=== PATIENT | male | born 1945 | race Caucasian/White ===

== ENCOUNTER 2020-01-04 17:15 | Inpatient (IN) | payer MEDICARE, OTHER ==
[~2020-01-04] VITALS: Ht 188 cm; Wt 78.1 kg
[2020-01-04] MEDS ORDERED: ZOLPIDEM TARTRATE 5MG TABLET PO PRN (18:30)
[2020-01-04] MEDS ORDERED: MAGNESIUM HYDROXIDE 400MG/5ML 30ML UDC PO PRN (18:30)
[2020-01-04] MEDS ORDERED: ONDANSETRON HCL 4MG/2ML INJ IV PRN (18:30)
[2020-01-04] MEDS ORDERED: ENAL20TA67 PO (18:53)
[2020-01-04 19:45] VITALS: BP 133/75
[2020-01-04 20:00] VITALS: BP 133/75
[2020-01-04] MEDS: AMLODIPINE 5MG TABLET PO SCH (20:11)
[2020-01-05] MEDS ORDERED: CEPHALEXIN 250MG CAPSULE PO SCH
[2020-01-05] MEDS: PANTOPRAZOLE 40MG DR TABLET PO SCH (06:12)
[2020-01-05 06:58] LABS: BASOPHILS % 0.7 % (0.0-2.0); EOSINOPHILS % 1.2 % (0.0-5.0); HEMATOCRIT. 29.4 % (42.0-52.0); LYMPHOCYTES % 20.8 % (20.0-50.0); MEAN CORPUSCULAR HEMOGLOBIN 28.8 pg (28.0-32.0); MEAN CORPUSCULAR VOLUME 84.7 fL (80.0-94.0); MONOCYTES % 9.5 % (2.0-8.0); NEUTROPHILS % 67.8 % (40.0-76.0); PLATELET 201 x1000/uL (130-400); RED BLOOD CELL COUNT 3.47 mill/uL (4.7-6.1); RED CELL DISTRIBUTION WIDTH 14.5 % (11.6-14.6)
[2020-01-05 07:06] LABS: CHLORIDE 108 mEq/L (98-107)
[2020-01-05 07:46] VITALS: BP 140/77
[2020-01-05] MEDS: BICALUTAMIDE 50 MG TABLET PO SCH (09:30)
[2020-01-05] MEDS: CEPHALEXIN 250MG CAPSULE PO SCH ×3 (09:31→17:28)
[2020-01-05] MEDS: DOCUSATE SODIUM 100MG CAPSULE PO SCH ×2 (09:31→17:28)
[2020-01-05] MEDS: AMLODIPINE 5MG TABLET PO SCH (09:31)
[2020-01-05 20:00] VITALS: BP 167/40
[2020-01-05] MEDS: ACETAMINOPHEN 325MG TABLET PO PRN (23:57)
[2020-01-06] MEDS: PANTOPRAZOLE 40MG DR TABLET PO SCH (06:16)
[2020-01-06 07:58] VITALS: BP 144/80
[2020-01-06] MEDS: ENOXAPARIN 40MG/0.4ML SYR SUBCUT SCH (09:00)
[2020-01-06] MEDS: DOCUSATE SODIUM 100MG CAPSULE PO SCH ×2 (09:40→17:40)
[2020-01-06] MEDS: AMLODIPINE 5MG TABLET PO SCH (09:40)
[2020-01-06] MEDS: BICALUTAMIDE 50 MG TABLET PO SCH (09:40)
[2020-01-06 20:00] VITALS: BP 159/78
[2020-01-07] MEDS: PANTOPRAZOLE 40MG DR TABLET PO SCH (06:04)
[2020-01-07 07:52] VITALS: BP 139/80
[2020-01-07] MEDS: BICALUTAMIDE 50 MG TABLET PO SCH (08:45)
[2020-01-07] MEDS: DOCUSATE SODIUM 100MG CAPSULE PO SCH ×2 (08:45→17:00)
[2020-01-07] MEDS: AMLODIPINE 5MG TABLET PO SCH (08:45)
[2020-01-07] MEDS: ENOXAPARIN 40MG/0.4ML SYR SUBCUT SCH (08:45)
[2020-01-07 20:00] VITALS: BP 162/88
[2020-01-08] MEDS: PANTOPRAZOLE 40MG DR TABLET PO SCH (06:04)
[2020-01-08 07:31] VITALS: BP 149/83
[2020-01-08 08:04] VITALS: BP 149/83
[2020-01-08] MEDS: DOCUSATE SODIUM 100MG CAPSULE PO SCH ×2 (08:58→16:28)
[2020-01-08] MEDS: AMLODIPINE 5MG TABLET PO SCH (08:58)
[2020-01-08] MEDS: ENOXAPARIN 40MG/0.4ML SYR SUBCUT SCH (08:59)
[2020-01-08] MEDS: BICALUTAMIDE 50 MG TABLET PO SCH (08:59)
[2020-01-08] MEDS: ACETAMINOPHEN 325MG TABLET PO PRN (11:28)
[2020-01-08 12:56] LABS: HEMATOCRIT. 32.8 % (42.0-52.0); MEAN CORPUSCULAR HEMOGLOBIN 28.9 pg (28.0-32.0); MEAN CORPUSCULAR VOLUME 85.9 fL (80.0-94.0); MEAN PLATELET VOLUME 7.8 fl (7.4-10.4); PLATELET 280 x1000/uL (130-400); RED BLOOD CELL COUNT 3.82 mill/uL (4.7-6.1); RED CELL DISTRIBUTION WIDTH 14.6 % (11.6-14.6)
[2020-01-08 13:07] LABS: CHLORIDE 107 mEq/L (98-107)
[2020-01-08] MEDS: TRAMADOL 50MG TABLET PO PRN ×2 (13:17→23:19)
[2020-01-08 15:05] LABS: PLATELET ESTIMATE NORMAL
[2020-01-08] MEDS: LACTULOSE 20G/30ML UDC PO PRN (16:29)
[2020-01-08 20:00] VITALS: BP 137/81
[2020-01-09] MEDS: PANTOPRAZOLE 40MG DR TABLET PO SCH (06:05)
[2020-01-09 07:58] VITALS: BP 152/85
[2020-01-09] MEDS: DOCUSATE SODIUM 100MG CAPSULE PO SCH ×2 (08:21→17:00)
[2020-01-09] MEDS: AMLODIPINE 5MG TABLET PO SCH (08:21)
[2020-01-09] MEDS: BICALUTAMIDE 50 MG TABLET PO SCH (08:21)
[2020-01-09] MEDS: ENOXAPARIN 40MG/0.4ML SYR SUBCUT SCH (08:22)
[2020-01-09] MEDS: TRAMADOL 50MG TABLET PO PRN (08:22)
[2020-01-09 20:09] VITALS: BP 162/57
[2020-01-09] MEDS: FAMOTIDINE 20MG TABLET PO SCH ×2 (21:00→22:00)
[2020-01-09] MEDS: ENALAPRIL 5MG TABLET PO SCH (22:00)
[2020-01-09] MEDS: LACTULOSE 20G/30ML UDC PO PRN (22:10)
[2020-01-10] MEDS: TRAMADOL 50MG TABLET PO PRN ×2 (05:05→15:41)
[2020-01-10] MEDS: BISACODYL 10MG SUPP PR PRN ×2 (05:48→06:18)
[2020-01-10 06:37] LABS: CHLORIDE 105 mEq/L (98-107)
[2020-01-10 07:21] LABS: BASOPHILS % 0.6 % (0.0-2.0); EOSINOPHILS % 0.7 % (0.0-5.0); HEMATOCRIT. 31.2 % (42.0-52.0); HEMOGLOBIN. 10.5 g/dL (14.0-18.0); LYMPHOCYTES % 22.1 % (20.0-50.0); MEAN CORPUSCULAR HEMOGLOBIN 28.8 pg (28.0-32.0); MEAN CORPUSCULAR VOLUME 85.6 fL (80.0-94.0); MONOCYTES % 7.4 % (2.0-8.0); NEUTROPHILS % 69.2 % (40.0-76.0); RED BLOOD CELL COUNT 3.65 mill/uL (4.7-6.1); RED CELL DISTRIBUTION WIDTH 14.7 % (11.6-14.6)
[2020-01-10 07:54] VITALS: BP 137/80
[2020-01-10] MEDS ORDERED: NA PHOS,M-B/NA PHOS,DI-BA ENEMA 118ML PR NR (08:15)
[2020-01-10] MEDS: BICALUTAMIDE 50 MG TABLET PO SCH (08:36)
[2020-01-10] MEDS: DOCUSATE SODIUM 100MG CAPSULE PO SCH ×2 (08:36→17:35)
[2020-01-10] MEDS: FAMOTIDINE 20MG TABLET PO SCH ×2 (08:37→20:28)
[2020-01-10] MEDS: ENALAPRIL 5MG TABLET PO SCH (08:37)
[2020-01-10] MEDS: AMLODIPINE 5MG TABLET PO SCH (08:38)
[2020-01-10] MEDS: ENOXAPARIN 40MG/0.4ML SYR SUBCUT SCH (08:42)
[2020-01-10 10:30] LABS: PLATELET 303 x1000/uL (130-400)
[2020-01-10] MEDS: SODIUM CHLORIDE 0.45% 1,000 ML IV SCH (10:30)
[2020-01-10] MEDS ORDERED: LUPRON INJ SCH (14:00)
[2020-01-10 18:23] LABS: CLARITY URINE CLOUDY (CLEAR); COLOR URINE YELLOW (YELLOW); KETONES URINE NEGATIVE (NEGATIVE); LEUKOCYTE ESTERASE URINE NEGATIVE (NEGATIVE); NITRITE URINE NEGATIVE (NEGATIVE); OCCULT BLOOD URINE 3+ (NEGATIVE); PROTEIN URINE 1+ (NEGATIVE)
[2020-01-10 20:00] VITALS: BP 131/76
[2020-01-10] MEDS: CEFTRIAXONE 1 G PREMIX 50 ML IV SCH (20:28)
[2020-01-11] MEDS: SODIUM CHLORIDE 0.45% 1,000 ML IV SCH (06:23)
[2020-01-11 08:06] VITALS: BP 142/81
[2020-01-11] MEDS: DOCUSATE SODIUM 100MG CAPSULE PO SCH ×2 (09:04→16:38)
[2020-01-11] MEDS: BICALUTAMIDE 50 MG TABLET PO SCH (09:04)
[2020-01-11] MEDS: ENOXAPARIN 40MG/0.4ML SYR SUBCUT SCH (09:05)
[2020-01-11] MEDS: TRAMADOL 50MG TABLET PO PRN (09:32)
[2020-01-11] MEDS: FAMOTIDINE 20MG TABLET PO SCH ×2 (10:30→20:59)
[2020-01-11 12:44] LABS: BASOPHILS % 0.4 % (0.0-2.0); EOSINOPHILS % 0.7 % (0.0-5.0); HEMATOCRIT. 29.9 % (42.0-52.0); HEMOGLOBIN. 10.2 g/dL (14.0-18.0); LYMPHOCYTES % 15.7 % (20.0-50.0); MEAN CORPUSCULAR HEMOGLOBIN 29.2 pg (28.0-32.0); MEAN CORPUSCULAR VOLUME 85.1 fL (80.0-94.0); MEAN PLATELET VOLUME 7.7 fl (7.4-10.4); MONOCYTES % 8.3 % (2.0-8.0); NEUTROPHILS % 74.9 % (40.0-76.0); PLATELET 346 x1000/uL (130-400); RED BLOOD CELL COUNT 3.51 mill/uL (4.7-6.1); RED CELL DISTRIBUTION WIDTH 15.2 % (11.6-14.6)
[2020-01-11 12:51] LABS: CHLORIDE 105 mEq/L (98-107)
[2020-01-11] MEDS: LIDOCAINE 5% PATCH TOP SCH (13:57)
[2020-01-11] MEDS: HYDROCODONE/ACETAMINOPHEN 5/325MG TABLET PO PRN (16:42)
[2020-01-11 20:00] VITALS: BP 156/78
[2020-01-11] MEDS: CEFTRIAXONE 1 G PREMIX 50 ML IV SCH (20:58)
[2020-01-12] MEDS: SODIUM CHLORIDE 0.45% 1,000 ML IV SCH (06:00)
[2020-01-12 06:53] LABS: BASOPHILS % 0.5 % (0.0-2.0); EOSINOPHILS % 1.1 % (0.0-5.0); HEMATOCRIT. 29.8 % (42.0-52.0); HEMOGLOBIN. 10.1 g/dL (14.0-18.0); LYMPHOCYTES % 19.8 % (20.0-50.0); MEAN CORPUSCULAR HEMOGLOBIN 29.4 pg (28.0-32.0); MEAN CORPUSCULAR VOLUME 86.7 fL (80.0-94.0); MEAN PLATELET VOLUME 7.8 fl (7.4-10.4); MONOCYTES % 9.1 % (2.0-8.0); NEUTROPHILS % 69.5 % (40.0-76.0); PLATELET 306 x1000/uL (130-400); RED BLOOD CELL COUNT 3.44 mill/uL (4.7-6.1); RED CELL DISTRIBUTION WIDTH 14.9 % (11.6-14.6)
[2020-01-12 08:00] VITALS: BP 160/88
[2020-01-12 08:14] LABS: CHLORIDE 105 mEq/L (98-107)
[2020-01-12] MEDS: HYDROCODONE/ACETAMINOPHEN 5/325MG TABLET PO PRN (08:41)
[2020-01-12] MEDS: DOCUSATE SODIUM 100MG CAPSULE PO SCH ×2 (08:41→17:15)
[2020-01-12] MEDS: BICALUTAMIDE 50 MG TABLET PO SCH (08:41)
[2020-01-12] MEDS: FAMOTIDINE 20MG TABLET PO SCH ×2 (08:42→21:49)
[2020-01-12] MEDS: ENOXAPARIN 40MG/0.4ML SYR SUBCUT SCH (08:42)
[2020-01-12] MEDS: LIDOCAINE 5% PATCH TOP SCH (08:42)
[2020-01-12] MEDS: OXYCODONE HCL 5MG TABLET PO SCH ×2 (13:00→17:00)
[2020-01-12 14:21] VITALS: BP 148/78
[2020-01-12] MEDS: CEFTRIAXONE 1 G PREMIX 50 ML IV SCH (20:15)
[2020-01-12] MEDS: CLONIDINE 0.1MG TABLET PO PRN (20:15)
[2020-01-12 20:45] VITALS: BP 170/80
[2020-01-12 21:00] VITALS: BP 170/76
[2020-01-12] MEDS: LACTULOSE 20G/30ML UDC PO PRN (21:49)
[2020-01-12 22:00] VITALS: BP 135/68
[2020-01-13] MEDS: SODIUM CHLORIDE 0.45% 1,000 ML IV SCH ×2 (00:47→17:43)
[2020-01-13 06:55] LABS: BASOPHILS % 0.3 % (0.0-2.0); HEMOGLOBIN. 9.5 g/dL (14.0-18.0); LYMPHOCYTES % 18.6 % (20.0-50.0); MEAN CORPUSCULAR HEMOGLOBIN 28.7 pg (28.0-32.0); MEAN CORPUSCULAR VOLUME 84.8 fL (80.0-94.0); MEAN PLATELET VOLUME 7.5 fl (7.4-10.4); MONOCYTES % 8.5 % (2.0-8.0); NEUTROPHILS % 71.6 % (40.0-76.0); PLATELET 317 x1000/uL (130-400); RED BLOOD CELL COUNT 3.31 mill/uL (4.7-6.1); RED CELL DISTRIBUTION WIDTH 14.5 % (11.6-14.6)
[2020-01-13 07:21] LABS: CHLORIDE 105 mEq/L (98-107)
[2020-01-13 08:00] VITALS: BP 162/87
[2020-01-13] MEDS: CLONIDINE 0.1MG TABLET PO PRN (08:37)
[2020-01-13] MEDS: DOCUSATE SODIUM 100MG CAPSULE PO SCH ×2 (08:37→16:12)
[2020-01-13] MEDS: BICALUTAMIDE 50 MG TABLET PO SCH (08:37)
[2020-01-13] MEDS: ENOXAPARIN 40MG/0.4ML SYR SUBCUT SCH (08:38)
[2020-01-13] MEDS: FAMOTIDINE 20MG TABLET PO SCH ×2 (08:38→21:00)
[2020-01-13] MEDS: OXYCODONE HCL 5MG TABLET PO SCH ×3 (08:38→16:12)
[2020-01-13] MEDS: LIDOCAINE 5% PATCH TOP SCH (08:38)
[2020-01-13 09:37] VITALS: BP 138/73
[2020-01-13] MEDS: LACTULOSE 20G/30ML UDC PO SCH ×2 (16:06→21:03)
[2020-01-13] MEDS: HYDROCODONE/ACETAMINOPHEN 10/325MG TABLET PO PRN ×2 (16:08→23:04)
[2020-01-13 20:00] VITALS: BP 124/76
[2020-01-13] MEDS: CEFTRIAXONE 1 G PREMIX 50 ML IV SCH (21:03)
[2020-01-14] MEDS: LACTULOSE 20G/30ML UDC PO SCH
[2020-01-14 07:00] LABS: CHLORIDE 106 mEq/L (98-107)
[2020-01-14 07:02] LABS: BASOPHILS % 0.5 % (0.0-2.0); EOSINOPHILS % 1.8 % (0.0-5.0); HEMOGLOBIN. 9.4 g/dL (14.0-18.0); MEAN CORPUSCULAR HEMOGLOBIN 28.6 pg (28.0-32.0); MEAN CORPUSCULAR VOLUME 85.5 fL (80.0-94.0); MEAN PLATELET VOLUME 7.5 fl (7.4-10.4); MONOCYTES % 8.5 % (2.0-8.0); NEUTROPHILS % 67.2 % (40.0-76.0); PLATELET 322 x1000/uL (130-400); RED BLOOD CELL COUNT 3.28 mill/uL (4.7-6.1); RED CELL DISTRIBUTION WIDTH 14.6 % (11.6-14.6)
[2020-01-14 07:51] VITALS: BP 154/70
[2020-01-14] MEDS: FAMOTIDINE 20MG TABLET PO SCH ×3 (08:06→21:00)
[2020-01-14] MEDS: DOCUSATE SODIUM 100MG CAPSULE PO SCH ×2 (08:06→17:05)
[2020-01-14] MEDS: ENOXAPARIN 40MG/0.4ML SYR SUBCUT SCH (08:06)
[2020-01-14] MEDS: BICALUTAMIDE 50 MG TABLET PO SCH (08:08)
[2020-01-14] MEDS: OXYCODONE HCL 5MG TABLET PO SCH (08:09)
[2020-01-14] MEDS: LIDOCAINE 5% PATCH TOP SCH (08:10)
[2020-01-14] MEDS ORDERED: MORPHINE SULFATE 15MG TABLET SR PO NR (10:45)
[2020-01-14 11:20] VITALS: BP 155/84
[2020-01-14] MEDS ORDERED: NA PHOS,M-B/NA PHOS,DI-BA ENEMA 118ML PR ONE (13:00)
[2020-01-14] MEDS: HYDROCODONE/ACETAMINOPHEN 10/325MG TABLET PO PRN (17:06)
[2020-01-14 20:00] VITALS: BP 152/87
[2020-01-14] MEDS: CEFTRIAXONE 1 G PREMIX 50 ML IV SCH (21:06)
[2020-01-14] MEDS: MORPHINE SULFATE 15MG TABLET SR PO SCH (21:09)
[2020-01-15] MEDS: HYDROCODONE/ACETAMINOPHEN 10/325MG TABLET PO PRN ×2 (00:49→05:53)
[2020-01-15 07:48] VITALS: BP 148/76
[2020-01-15] MEDS: MORPHINE SULFATE 15MG TABLET SR PO SCH ×2 (08:05→21:24)
[2020-01-15] MEDS: LIDOCAINE 5% PATCH TOP SCH (09:59)
[2020-01-15] MEDS: DOCUSATE SODIUM 100MG CAPSULE PO SCH ×2 (09:59→16:42)
[2020-01-15] MEDS: ENOXAPARIN 40MG/0.4ML SYR SUBCUT SCH (09:59)
[2020-01-15] MEDS: FAMOTIDINE 20MG TABLET PO SCH ×2 (09:59→21:23)
[2020-01-15] MEDS: AMLODIPINE 5MG TABLET PO SCH (10:03)
[2020-01-15] MEDS: BICALUTAMIDE 50 MG TABLET PO SCH (10:03)
[2020-01-15 20:00] VITALS: BP 142/68
[2020-01-15] MEDS: CEFTRIAXONE 1,000 MG in DEXTROSE 5% WATER 50 ML IV SCH (21:23)
[2020-01-16 06:52] LABS: CHLORIDE 106 mEq/L (98-107)
[2020-01-16 07:07] LABS: BASOPHILS % 0.4 % (0.0-2.0); EOSINOPHILS % 1.6 % (0.0-5.0); HEMATOCRIT. 28.2 % (42.0-52.0); HEMOGLOBIN. 9.4 g/dL (14.0-18.0); MEAN CORPUSCULAR HEMOGLOBIN 28.7 pg (28.0-32.0); MEAN CORPUSCULAR VOLUME 85.7 fL (80.0-94.0); MEAN PLATELET VOLUME 7.6 fl (7.4-10.4); MONOCYTES % 9.4 % (2.0-8.0); NEUTROPHILS % 70.6 % (40.0-76.0); PLATELET 325 x1000/uL (130-400); RED BLOOD CELL COUNT 3.29 mill/uL (4.7-6.1); RED CELL DISTRIBUTION WIDTH 15.1 % (11.6-14.6)
[2020-01-16 08:00] VITALS: BP 168/87
[2020-01-16] MEDS: BICALUTAMIDE 50 MG TABLET PO SCH (08:41)
[2020-01-16] MEDS: DOCUSATE SODIUM 100MG CAPSULE PO SCH ×2 (08:41→16:43)
[2020-01-16] MEDS: MORPHINE SULFATE 15MG TABLET SR PO SCH ×2 (08:41→21:25)
[2020-01-16] MEDS: AMLODIPINE 5MG TABLET PO SCH (08:41)
[2020-01-16] MEDS: FAMOTIDINE 20MG TABLET PO SCH ×2 (08:41→21:00)
[2020-01-16] MEDS: LIDOCAINE 5% PATCH TOP SCH (08:42)
[2020-01-16] MEDS: ENOXAPARIN 40MG/0.4ML SYR SUBCUT SCH (08:42)
[2020-01-16 20:00] VITALS: BP 149/82
[2020-01-16] MEDS: CEFTRIAXONE 1,000 MG in DEXTROSE 5% WATER 50 ML IV SCH (21:24)
[2020-01-17 08:14] VITALS: BP 167/85
[2020-01-17] MEDS: DOCUSATE SODIUM 100MG CAPSULE PO SCH ×2 (08:46→17:00)
[2020-01-17] MEDS: ENOXAPARIN 40MG/0.4ML SYR SUBCUT SCH (08:47)
[2020-01-17] MEDS: MORPHINE SULFATE 15MG TABLET SR PO SCH ×2 (08:47→20:59)
[2020-01-17] MEDS: AMLODIPINE 5MG TABLET PO SCH (08:47)
[2020-01-17] MEDS: FAMOTIDINE 20MG TABLET PO SCH ×2 (08:47→20:59)
[2020-01-17] MEDS: BICALUTAMIDE 50 MG TABLET PO SCH (08:48)
[2020-01-17] MEDS: LIDOCAINE 5% PATCH TOP SCH (08:48)
[2020-01-17 20:00] VITALS: BP 140/76
[2020-01-17] MEDS ORDERED: CEFTRIAXONE 1 G PREMIX 50 ML IV SCH (21:00)
[2020-01-18] MEDS: HYDROCODONE/ACETAMINOPHEN 10/325MG TABLET PO PRN (04:33)
[2020-01-18] MEDS: BICALUTAMIDE 50 MG TABLET PO SCH (08:10)
[2020-01-18] MEDS: MORPHINE SULFATE 15MG TABLET SR PO SCH (08:11)
[2020-01-18] MEDS: DOCUSATE SODIUM 100MG CAPSULE PO SCH (08:11)
[2020-01-18] MEDS: AMLODIPINE 5MG TABLET PO SCH (08:11)
[2020-01-18] MEDS: FAMOTIDINE 20MG TABLET PO SCH (08:11)
[2020-01-18] MEDS: ENOXAPARIN 40MG/0.4ML SYR SUBCUT SCH (08:12)
[2020-01-18] MEDS: LIDOCAINE 5% PATCH TOP SCH (08:12)
[2020-01-18 08:30] VITALS: BP 171/87
[2020-01-18 10:59] VITALS: BP_SYST 155; BP_SYST 181; BP_DIAS 70; BP_DIAS 93
[2020-01-18] MEDS: CLONIDINE 0.1MG TABLET PO PRN (11:34)
== END 2020-01-18 13:35 | disposition home health service (06) | DRG 543 ==
PROVIDERS: ADMIT Psychiatry & Neurology Neurology; ATTEND Internal Medicine Nephrology
DX: M84.452A Pathological fracture, left femur, initial encounter for fracture (principal); C79.9 Secondary malignant neoplasm of unspecified site; F05 Delirium due to known physiological condition; R53.81 Other malaise; Z96.642 Presence of left artificial hip joint; C61 Malignant neoplasm of prostate; I10 Essential (primary) hypertension; D64.9 Anemia, unspecified; M79.609 Pain in unspecified limb; R26.9 Unspecified abnormalities of gait and mobility; E78.5 Hyperlipidemia, unspecified; R13.10 Dysphagia, unspecified; M47.817 Spondylosis without myelopathy or radiculopathy, lumbosacral region; K59.00 Constipation, unspecified; R79.89 Other specified abnormal findings of blood chemistry; Z86.73 Personal history of transient ischemic attack (TIA), and cerebral infarction without residual deficits
CPT/HCPCS: 36415; 71045; 72141; 73030; 73221; 78306; 80048; 81003; 82962; 84075; 84153; 85025; 92610; 93970; 97110; 97116; 97162; 97166; 97530; 97535; A9503; J0696; J1650; J7060; L0172; A5200; G0103